=== PATIENT | male | born 1950 | race Caucasian/White ===

== ENCOUNTER 2017-08-09 07:30 | Inpatient (IN) | payer MEDICARE, OTHER ==
[2017-08-09] MEDS ORDERED: Thrombin (Bovine) 5,000 Unit Kit ONE (08:18)
[2017-08-09] MEDS ORDERED: Povidone-Iodine 10% Soln 118.25 ML Bottle ONE (08:18)
[2017-08-09] MEDS ORDERED: Lactated Ringers 1,000 ML IV SCH (09:00)
[2017-08-09] MEDS ORDERED: Gabapentin 300 MG Cap PO ONE (09:00)
[2017-08-09] MEDS ORDERED: Clindamycin Phosphate 900 MG in Sodium Chloride 0.9% 100 ML IV ONE (09:00)
[2017-08-09] MEDS ORDERED: Scopolamine 1.5 MG Transdermal Patch TOP SCH (09:00)
[2017-08-09] MEDS ORDERED: Ketamine 500 MG/5 ML MDV IV SCH (10:00)
[2017-08-09] MEDS ORDERED: Succinylcholine 200 MG/10 ML MDV ONE (10:14)
[2017-08-09] MEDS ORDERED: Ondansetron 4 MG/2 ML SDV ONE (10:14)
[2017-08-09] MEDS ORDERED: Rocuronium 50 MG/5 ML Vial ONE ×2 (10:14→11:51)
[2017-08-09] MEDS ORDERED: Neostigmine Methylsulfate 1 MG/ML 5 ML Syringe ONE (10:14)
[2017-08-09] MEDS ORDERED: Propofol 200 MG/20 ML SDV ONE (10:14)
[2017-08-09] MEDS ORDERED: Dexamethasone 4 MG/ML SDV ONE (10:14)
[2017-08-09] MEDS ORDERED: Glycopyrrolate 0.2 MG/ML 5 ML MDV ONE (10:14)
[2017-08-09] MEDS ORDERED: fentaNYL 250 MCG/5 ML SDV ONE ×2 (10:14→11:22)
[2017-08-09] MEDS: Tranexamic Acid 850 MG in Sodium Chloride 0.9% 50 ML IV SCH ×2 (11:32→13:35)
[2017-08-09] MEDS ORDERED: Naloxone 0.4 MG/ML SDV IVPUSH PRN (12:06)
[2017-08-09] MEDS ORDERED: HYDROmorphone/Normal Saline 15 MG/30 ML PCA IV PRN (12:06)
[2017-08-09] MEDS ORDERED: Lactated Ringers 1,000 ML ONE (12:35)
[2017-08-09] MEDS ORDERED: Linezolid 200 MG/100 ML Bag IRR ONE (13:00)
[2017-08-09] MEDS ORDERED: hydrOXYzine HCl 100 MG/2 ML SDV IM ONE (13:26)
--- NOTE | 2017-08-09 14:48 | OR ---
DATE OF PROCEDURE: 08/09/2017 PREOPERATIVE DIAGNOSIS: L5-S1 stenosis. POSTOPERATIVE DIAGNOSIS: L5-S1 stenosis. PROCEDURES PERFORMED: 1. Anterior lumbar interbody fusion, L5-S1. 2. Segmental instrumentation, L5-S1. 3. Interbody device placement, L5-S1. CO-SURGEON: Kain Rivera MD. WARM IN: DIANA Castro. Physician library technical assistant, DIANA Castro, played an essential role in assisting in this case, helping to position the patient, retract structures as needed, as well as suturing and cutting sutures as indicated. Her presence improved patient's safety and decreased operative time. ANESTHESIA: General endotracheal intubation. FLUID: Lactated Ringer solution. ESTIMATED BLOOD LOSS: 200 mL. COMPLICATIONS: None. SPECIMENS: None. DISCHARGE DISPOSITION: Stable to PACU. INDICATION: The patient was seen preoperatively in the clinic. He previously had an L4-5 laminectomy. Preoperative imaging confirmed a right extraforaminal disk herniation at L5- S1. Risks and benefits of the procedure were explained to the patient and informed consent was obtained. DETAILS OF PROCEDURE: The patient was seen preoperatively by myself and the Anesthesia staff in the preoperative holding area, where the operative site was marked. He was brought to the operative suite by the Anesthesia staff, where general anesthesia was administered. Sterile Deras catheter was placed. Neuromonitoring leads were placed and were normal throughout the procedure. The fluoroscopy unit was draped in a sterile manner. All extremities were found to be well padded. The patient was then prepped and draped in a sterile manner. Time-out was called identifying the correct patient, the correct procedure, the correct site, and that antibiotics had been begun within appropriate period of time. Please see Dr. Kain Rivera's note for exposure. After exposure had been accomplished, I used Bovie electrocautery to go through the anterior annulus and then used a knife to continue through the anulus, followed by a Clinton to separate the annulus from the endplates. I then used pituitaries to remove most of the disk en bloc. I then used straight and curved curettes as well as a Kerrison rongeur to remove the disk material as well as an anterior osteophyte on the inferior aspect of the L5 vertebral body, more on the right side. I then inserted sequential nandini from 9 to 15 mm. I then inserted a 13 and then a 15 mm implant. This was more on the right side, so I took more disk on the left. This showed that it was nicely in the midline. At this point, I then removed my trial and then removed any extra disk material. I then applied Signify allograft medial and laterally in the intervertebral space and then inserted my final implant, which was a Globus Magnify-S 25 x 31, 14, 17, 15- degree implant and then expanded this under direct visualization. I then placed my screws by doing an awl, then tap, and then screw placement. These were 30 mm x 5 mm screws. We then locked the locking mechanism for those screws. We then took final films, which showed the implant to be in good position. I did control little bit of bleeding with Floseal as well as placing some more Signify. Please see Dr. Kain Rivera's note for closure. Enrique Rivera DO /[id number]
[2017-08-09] MEDS ORDERED: Ondansetron 4 MG/2 ML SDV IV PRN (15:19)
[2017-08-09] MEDS ORDERED: hydrOXYzine HCl 100 MG/2 ML SDV IM PRN (15:20)
[2017-08-09] MEDS ORDERED: hydrOXYzine HCl 25 MG Tab PO PRN (15:20)
[2017-08-09] MEDS ORDERED: Cyclobenzaprine 10 MG Tab PO PRN (15:21)
[2017-08-09] MEDS ORDERED: Pantoprazole 40 MG Vial IV SCH (16:00)
[2017-08-09] MEDS: Nicotine 21 MG/24 Hr Patch TRDERM SCH (16:23)
[2017-08-09] MEDS: Dextrose 5%-Lactated Ringers 1,000 ML IV SCH ×2 (16:23→22:32)
[2017-08-09] MEDS: VERIFY SCOP PATCH TOP SCH ×2 (16:26→20:15)
[2017-08-09] MEDS: Clindamycin Phosphate 900 MG in Sodium Chloride 0.9% 100 ML IV SCH (17:42)
[2017-08-09] MEDS: Gabapentin 300 MG Cap PO SCH (20:17)
[2017-08-09] MEDS ORDERED: Tamsulosin 0.4 MG Cap.ER PO SCH (21:00)
[2017-08-10] MEDS: Clindamycin Phosphate 900 MG in Sodium Chloride 0.9% 100 ML IV SCH ×2 (01:57→10:52)
[2017-08-10] MEDS: Dextrose 5%-Lactated Ringers 1,000 ML IV SCH (05:02)
[2017-08-10] MEDS ORDERED: ALPRAZolam 0.5 MG Tab PO PRN (07:31)
--- NOTE | 2017-08-10 08:58 | PN ---
DATE OF SERVICE: 08/10/2017 SUBJECTIVE: Moose's vital signs have been stable. Temp max of 100. States his pain is controlled. He is using the JEWELRY SALES ASSOCIATE. Oral intake, ice chips. Deras catheter output was 1330. DANIKA drain put out 15 mL of a light pink serosanguineous drainage. REVIEW OF SYSTEMS: Remainder of review of systems negative for any pertinent positives and negatives. OBJECTIVE: GENERAL: Moose Padilla is a 66-year-old male. VITAL SIGNS: TPR is 100, 81, 16. Blood pressure is 124/70. HEENT: Negative. NECK: Supple. HEART: Regular rate and rhythm. LUNGS: Clear. ABDOMEN: Dressings dry and intact. Abdominal binder is on. EXTREMITIES: Without peripheral edema. ASSESSMENT: Anterior lumbar interbody fusion, segmental instrumentation, interbody device placement for L5-S1 stenosis. PLAN: 1. Saline lock IV when oral intake adequate. 2. Discontinue Deras catheter. 3. Regular diet. 4. Discontinue JEWELRY SALES ASSOCIATE and continuous pulse ox. 5. Percocet 5/325 mg 1 to 2 every 4 hours p.r.n. pain. 6. Colace 100 mg b.i.d. 7. Discontinue IV Protonix. 8. Xanax 0.5 mg q.i.d. p.r.n. 9. Lunesta 3 mg p.o. bedtime. 10.Omeprazole 40 mg p.o. daily. 11.Good pulmonary toilet. 12.We will evaluate p.r.n. or in a.m. Holly Falk PA-C /[id number]
[2017-08-10] MEDS: Gabapentin 300 MG Cap PO SCH ×2 (09:34→22:01)
[2017-08-10] MEDS: Pantoprazole 40 MG Tab.CR PO SCH (09:34)
[2017-08-10] MEDS: Docusate Sodium 100 MG Cap PO SCH ×2 (09:34→22:01)
[2017-08-10] MEDS: Acetaminophen/oxyCODONE 325-5 MG Tab PO PRN ×4 (09:35→22:43)
[2017-08-10] MEDS: Nicotine 21 MG/24 Hr Patch TRDERM SCH (09:36)
[2017-08-10] MEDS: VERIFY SCOP PATCH TOP SCH ×2 (09:36→22:02)
--- NOTE | 2017-08-10 17:34 | OR ---
DATE OF PROCEDURE: 08/09/2017 PREOPERATIVE DIAGNOSIS: Lumbar spinal stenosis, L5-S1. POSTOPERATIVE DIAGNOSES: 1. Lumbar spinal stenosis, L5-S1. 2. 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 PROCEDURES: 1. Anterior lumbar and spinal fusion, L5-S1 ([id number]). 2. Side repair of left common iliac vein ([id number]). INDICATION FOR PROCEDURE: The patient presents for anterior lumbar interspinal fusion of L5 and S1. General Surgery is involved in providing of the access for the orthopedic phase of the procedure. Potential risks of that phase including bleeding, infection, potentially life-threatening complications in terms of bleeding and or vascular occlusion, possibility of injury or other adjacent vessels were all reviewed, and the patient wishes to proceed. DETAILS OF PROCEDURE: The patient was taken to the operating room and placed in a supine position. After general endotracheal anesthesia was induced, a Deras catheter was inserted and it was placed underneath the left knee to offload pressure on the left psoas muscle. After the abdomen prepped and draped, a left lower paramedian incision was made and carried down through the skin and subcutaneous tissue and anterior rectus sheath. Rectus muscles were reflected medially and dissection continued from there down into the area of the psoas muscle retracting the peritoneum away from the left iliac vessels as well as distal aorta and vena cava. As we had retractors, it became evident that one of the branches of the left common iliac vein coming off laterally was densely adherent from the inflammatory standpoint, essentially almost fused to the vertebral body. At that point, this area needed to be divided and the side repair of the left common iliac vein accomplished with a surirl-gh-dilgy stitch of 5-0 [place]-Adi stitch. Following this, an adequate exposure was obtained. The middle cerebral vessels were divided with Harmonic scalpel. The neural plexus had been also retracted anteriorly. Following this, progression of exposure under separate dictation. Dr. Enrique Rivera performed the orthopedic phase of the procedure. Upon completion of that, the area was inspected. No further bleeding or other problems were noted. Some fibrin sealant was placed over the venous repair, both artery and vein appeared to be patent with good pulses in the distal arterial tree bilaterally. The area was irrigated with antibiotic-containing saline solution following removal of retractors and the anterior rectus sheath was reapproximated with #2 Vicryl stitch. A 10-S[place] round Tahir-Hernandez drain was placed through a stab wound superior to the main incision and the incision then closed with 2 layers of 3-0 and 4-0 Vicryl stitch deep and matthew for the skin. Dressing was applied. The patient was taken to the recovery room in satisfactory condition. There were no overt complications. Kain Rivera MD /[id number]
[2017-08-10] MEDS ORDERED: Tamsulosin 0.4 MG Cap.ER PO SCH ×2 (21:00)
[2017-08-10] MEDS ORDERED: Tamsulosin 0.4 MG Cap.ER PO ONE (21:15)
[2017-08-11] MEDS: Acetaminophen/oxyCODONE 325-5 MG Tab PO PRN ×2 (03:20→07:20)
[2017-08-11] MEDS: Pantoprazole 40 MG Tab.CR PO SCH (07:13)
[2017-08-11] MEDS: Docusate Sodium 100 MG Cap PO SCH (08:24)
[2017-08-11] MEDS: Gabapentin 300 MG Cap PO SCH (08:31)
[2017-08-11] MEDS: Nicotine 21 MG/24 Hr Patch TRDERM SCH (08:31)
--- NOTE | 2017-08-12 08:48 | DISCH ---
ADMISSION DIAGNOSES: Back pain, no other past medical history is listed, lumbar foraminal stenosis, discogenic low back pain, and spinal stenosis of lumbar spine without neurogenic claudication. DISCHARGE DIAGNOSIS: Anterior lumbar interbody fusion, segmental instrumentation, interbody device placement for L5 and S1. HISTORY: Moose Padilla is a 66-year-old male, who presents to the hospital with back pain. After preoperative evaluation and discussion of possible risks and possible complications, he wishes to proceed with surgical procedure. HOSPITAL COURSE: Moose had his surgery on 08/09/2017. He had no operative complications. On postop day #1, his Deras catheter was discontinued, PEER COUNSELOR discontinued. He was started on oral pain medication and regular diet. He had no complications. His activity was good. He was followed by Physical Therapy. He did have a temp max of 100.2, but after using his incentive spirometer, his temperature did come down right away. On postop day #2, he was able to be discharged to home without any complications. PHYSICAL EXAMINATION: GENERAL: Moose Padilla is a 66-year-old male. He is alert and orientated. VITAL SIGNS: Height 5 feet 9 inches, weight is 188 pounds. TPR 99.4, 87, 16. Blood pressure 126/68. HEENT: Negative. NECK: Supple. HEART: Regular rate and rhythm. LUNGS: Clear. ABDOMEN: Celi intact. DANIKA drain intact, draining a scant amount of pink serosanguineous drainage and normal tenderness. Abdominal binder has been on. EXTREMITIES: Without peripheral edema. DISPOSITION: Discharged to home. CONDITION: Stable and improving. FOLLOWUP: Followup appointment with Kain Rivera M.D., at [facility] on 08/17/2017 at 9:00 a.m. Followup appointment with Enrique Rivera D.O., on 09/12/2017 at 10:30 a.m. HOME PRESCRIPTIONS: Percocet 5/325 mg 1 to 2 every 4 hours p.r.n. pain, #50; Colace 100 mg oral b.i.d., #100; and Flomax, use as directed per primary care provider. He is to resume Lunesta 3 mg oral at bedtime, Neurontin 600 mg oral b.i.d., naproxen p.r.n., Prilosec 40 mg oral daily, and Viagra 100 mg oral at bedtime. DISCHARGE INSTRUCTIONS: 1. Diet after discharge: Usual diet as tolerated. Drink 8 to 10 glasses of water a day. 2. No lifting greater than 10 pounds for 6 weeks. Other activity per Physical Therapy. 3. Driving: Do not drive while on pain medication. 4. May shower. 5. Notify provider if any fever, increased pain, nausea or vomiting. 6. Keep site clean and dry. 7. Wound care: After discharge, strip, empty, measure, and record DANIKA drain 4 times a day and bring record of drainage to clinic appointment. Wear abdominal binder for 6 weeks. SPECIAL INSTRUCTIONS: Use incentive spirometer 10 times every hour while awake for 1 week. Follow postoperative instructions per Enrique Rivera DO, in regard to that.
== END 2017-08-11 09:20 | disposition home or self-care (01) | DRG 460 ==
LOC: EDSTATUS 07:30 → JP.SDS 08:20 → JP.SDSSCHI 08:20 → JP.MS 13:45
PROVIDERS: ADMIT Orthopaedic Surgery; ATTEND Orthopaedic Surgery
PROC: 0SG03A0 Fusion of Lumbar Vertebral Joint with Interbody Fusion Device, Anterior Approach, Anterior Column, Percutaneous Approach (ICD-10-PCS; principal; 2017-08-09)
PROC: 0ST20ZZ Resection of Lumbar Vertebral Disc, Open Approach (ICD-10-PCS; 2017-08-09)
PROC: 06L Lower Veins, Occlusion (ICD-10-PCS; 2017-08-09)
DX: M48.061 Spinal stenosis, lumbar region without neurogenic claudication (principal); M51.36 Other intervertebral disc degeneration, lumbar region; F17.210 Nicotine dependence, cigarettes, uncomplicated; Z88.0 Allergy status to penicillin; I87.8 Other specified disorders of veins
CPT/HCPCS: 36415; 76001; 80048; 83735; 84100; 85027; 86850; 86900; 86901; 86920; 86922; 94762; 97161-GP; 97165-GO; 97530-GP; 97535-GO; 97535-GP; A9270-GY; C9113; J0330; J1100; J1170; J2020; J2405; J2704; J2710; J3010; J3410; J7030; J7042; J7050; J7120; S0077

== ENCOUNTER 2020-01-16 19:27 | Emergency (ER) | payer MEDICARE, OTHER ==
[2020-01-16] MEDS ORDERED: HYDROmorphone 1 MG/ML Syringe IVPUSH ONE (19:31)
--- NOTE | 2020-01-16 19:38 | EDM.PDOC ---
ED HPI GENERAL MEDICAL PROBLEM - General Chief Complaint: Lower Extremity Injury/Pain Stated Complaint: POSSIBLE BROKEN RT LEG Time Seen by Provider: 01/16/20 19:30 Source of Information: Reports: Patient, Old Records History Limitations: Reports: No Limitations - History of Present Illness INITIAL COMMENTS - FREE TEXT/NARRATIVE: 69 yo male fell down some stairs at home before coming in today. He injured his R distal leg only in the fall. Here for eval. Onset: Today, Sudden Onset Date: 01/16/20 Onset Time: 18:40 Duration: Minutes:, Constant Location: Reports: Lower Extremity, Right Quality: Reports: Ache Severity: Severe Improves with: Reports: Rest Worsens with: Reports: Movement Context: Reports: Trauma Associated Symptoms: Reports: No Other Symptoms Treatments CABLE INSTALLER: Reports: NSAIDS (ibuprofen ? 1 tab) right lower leg Pain Score (Numeric/FACES): 8 - Related Data Allergies Allergy/AdvReac Type Severity Reaction Status Date / Time Penicillins Allergy Swelling Verified 01/16/20 19:37 Home Meds: Home Meds ALPRAZolam [Xanax] 0.5 mg PO QID PRN 06/15/17 [History] Eszopiclone [Lunesta] 3 mg PO BEDTIME 06/15/17 [History] Naproxen Sodium 220 mg PO DAILY PRN 06/15/17 [History] Omeprazole [priLOSEC OTC] 40 mg PO DAILY 06/15/17 [History] Tamsulosin [Flomax] 0.8 mg PO DAILY 06/15/17 [History] Past Medical History Gastrointestinal History: Reports: Colon Polyp, GERD Genitourinary History: Reports: Other (See Below) Other Genitourinary History: urinary retension Musculoskeletal History: Reports: Arthritis Neurological History: Reports: Neuropathy, Peripheral Other Neuro History: furuncle of neck, spinal stenosis Psychiatric History: Reports: Anxiety - Past Surgical History GI Surgical History: Reports: Colonoscopy, EGD Male Surgical History: Reports: None Neurological Surgical History: Reports: Laminectomy Musculoskeletal Surgical History: Reports: None Other Musculoskeletal Surgeries/Procedures:: ALIF L5-S1 08-09-17 Social & Family History - Family History Family Medical History: Noncontributory - Caffeine Use Caffeine Use: Reports: Coffee Review of Systems - Review of Systems Review Of Systems: See Below Constitutional: Reports: No Symptoms Musculoskeletal: Reports: Leg Pain (distal R leg) Skin: Reports: Bruising, Wound (small break in the skin over area of injury. ) Neurological: Reports: Numbness (both feet(hx of neuropathy)) ED EXAM, GENERAL - Physical Exam Exam: See Below Exam Limited By: No Limitations General Appearance: Alert, WD/WN, No Apparent Distress Eye Exam: Bilateral Eye: Normal Inspection Ears: Normal External Exam, Normal Canal, Hearing Grossly Normal Ear Exam: Bilateral Ear: Auricle Normal, Canal Normal Nose: Normal Inspection, No Blood Throat/Mouth: Normal Inspection, Normal Lips, Normal Voice, No Airway Compromise Head: Atraumatic, Normocephalic Neck: Normal Inspection, Non-Tender Respiratory/Chest: No Respiratory Distress, Lungs Clear, No Accessory Muscle Use, Chest Non-Tender Cardiovascular: Regular Rate, Rhythm, No Edema Extremities: Limited Range of Motion (of R ankle due to pain), Other (has swelling of the distal tibia area with tenderness. ). No: Normal Range of Motion, Non-Tender Neurological: Alert, Oriented, CN II-XII Intact, Normal Cognition, Other (mild numbness of both feet from his chronic neuropathy. ) Psychiatric: Normal Affect, Normal Mood Skin Exam: Warm, Dry, Normal Color, No Rash, Wound/Incision (small break in skin to distal tib/fib area anteriorly. ). No: Intact ED TRAUMA EXTREMITY PROCEDURES - Splinting Right Lower Extremity Splint Site: R short leg posterior splint Pre-Procedure NV Status: Normal Post-Procedure NV Status: Normal Splint Material: Fiberglass (Ortho Glass) Splint Design: Posterior Applied & Form Fitted By: Provider Provider Post-Splint Application NV Check: NV Status Normal, Good Position Complications: No Course - Vital Signs Last Recorded V/S: Last Vital Signs Temp 36.6 C 01/16/20 19:33 Pulse 75 01/16/20 20:45 Resp 16 01/16/20 19:33 BP 146/85 H 01/16/20 20:45 Pulse Ox 98 01/16/20 20:45 - Orders/Labs/Meds Orders: Active Orders 24 hr Category Date Time Status Tibia Fibula Rt [CR] Stat Exams 01/16/20 19:32 Taken Sodium Chloride 0.9% [Normal Saline] 1,000 ml Med 01/16/20 19:45 Active IV ASDIRECTED Medication Orders Sodium Chloride (Normal Saline) 1,000 mls @ 150 mls/hr IV ASDIRECTED MARYLOU Last Admin: 01/16/20 19:40 Dose: 150 mls/hr Documented by: KANIKA Stevenss: Medications Generic Name Dose Route Start Last Admin Trade Name Gabriella PRN Reason Stop Dose Admin Sodium Chloride 1,000 mls @ 150 mls/hr 01/16/20 19:45 01/16/20 19:40 Normal Saline IV 150 mls/hr ASDIRECTED MARYLOU Administration Discontinued Medications Generic Name Dose Route Start Last Admin Trade Name Gabriella PRN Reason Stop Dose Admin Bacitracin 1 dose 01/16/20 20:10 01/16/20 20:46 Bacitracin Oint 1 Gm TOP 01/16/20 20:11 1 dose ONETIME ONE Administration Hydrogen Peroxide 30 ml 01/16/20 20:23 01/16/20 20:46 Proxacol 3% TOP 01/16/20 20:24 30 ml ONETIME STA Administration Hydromorphone HCl 1 mg 01/16/20 19:31 01/16/20 20:25 Dilaudid IVPUSH 01/16/20 19:32 1 mg ONETIME ONE Administration Ketorolac Tromethamine 30 mg 01/16/20 20:09 01/16/20 20:14 Toradol IVPUSH 01/16/20 20:10 30 mg ONETIME ONE Administration - Radiology Interpretation Free Text/Narrative:: R tib/fib [id number]-displaced distal fibula fx Departure - Departure Time of Disposition: 21:40 Disposition: Home, Self-Care 01 Condition: Fair Clinical Impression: Bruising Fracture of distal fibula Qualifiers: Encounter type: initial encounter Fracture type: closed Fracture morphology: other fracture Laterality: right Qualified Code(s): S82.831A - Other fracture of upper and lower end of right fibula, initial encounter for closed fracture - Discharge Information *PRESCRIPTION DRUG MONITORING PROGRAM REVIEWED*: No *COPY OF PRESCRIPTION DRUG MONITORING REPORT IN PATIENT BREANA: No Instructions: Nondisplaced Fibular Ankle Fracture Treated With Immobilization, Adult Referrals: Antonio Hall MD [Primary Care Provider] - Forms: ED Department Discharge Additional Instructions: Keep ankle elevated above your heart to reduce swelling. Crutch walking and no weight bearing. Take ibuprofen 400 mg every 6 hrs with food for pain relief. Add either acetaminophen OR [place] for added relief. F/U with Dr. Vaca within the week for further evaluation(orthopedics). Wear splint at all times. Sepsis Event Note (ED) - Focused Exam Vital Signs: Vital Signs Temp Pulse Resp BP Pulse Ox 01/16/20 20:45 75 146/85 H 98 01/16/20 19:33 36.6 C 91 16 147/68 H 97 01/16/20 19:30 36.6 C 91 16 147/68 H 97 - My Orders Last 24 Hours: My Active Orders 01/16/20 19:32 Tibia Fibula Rt [CR] Stat 01/16/20 19:45 Sodium Chloride 0.9% [Normal Saline] 1,000 ml IV ASDIRECTED - Assessment/Plan Last 24 Hours: My Active Orders 01/16/20 19:32 Tibia Fibula Rt [CR] Stat 01/16/20 19:45 Sodium Chloride 0.9% [Normal Saline] 1,000 ml IV ASDIRECTED
[2020-01-16] MEDS ORDERED: Sodium Chloride 0.9% 1,000 ML IV SCH (19:45)
[2020-01-16] MEDS ORDERED: Ketorolac 30 MG/ML SDV IVPUSH ONE (20:09)
[2020-01-16] MEDS ORDERED: Bacitracin Oint 1 GM U/D Packet TOP ONE (20:10)
[2020-01-16] MEDS ORDERED: Hydrogen Peroxide 3% Top Soln 240 ML Bottle TOP STA (20:23)
--- NOTE | 2020-01-17 08:51 | CR ---
Tibia Fibula Rt CLINICAL HISTORY: Fall, pain FINDINGS: There is some soft tissue swelling over the medial malleolus. There is a tiny ossific density off the tip of the malleolus. This may be secondary ossification center. Small lesions is not excluded. There is some minimal bony irregularity at the distal fibula with the small vague linear lucency. Nondisplaced fracture not excluded Impression: Possible nondisplaced fracture distal fibula Small ossification of the medial malleolus near soft tissue swelling may represent secondary ossification center or small avulsion. Dedicated ankle study is recommended
== END 2020-01-16 21:58 | disposition home or self-care (01) ==
LOC: JP.ED 19:27
DX: S82.831A Other fracture of upper and lower end of right fibula, initial encounter for closed fracture (principal); K21.9 Gastro-esophageal reflux disease without esophagitis; Z88.0 Allergy status to penicillin; W10.9XXA Fall (on) (from) unspecified stairs and steps, initial encounter
CPT/HCPCS: 29515; 73590; 96361; 96374; 96375; 99283; A9270; J1170; J1885; J7030

== ENCOUNTER 2020-09-22 07:04 | Day surgery (SDC) | payer MEDICARE, OTHER ==
[~2020-09-22 07:04] MED LIST: Midazolam 1 MG/ML 2 ML SDV ONE; Propofol 200 MG/20 ML SDV ONE; fentaNYL 100 MCG/2 ML SDV ONE
[2020-09-22] MEDS ORDERED: Dextrose 5%-Lactated Ringers 1,000 ML IV SCH (08:00)
--- NOTE | 2020-09-30 16:38 | OR ---
DATE OF PROCEDURE: SURGEON: Kain Rivera MD PREOPERATIVE DIAGNOSIS: History of anemia. POSTOPERATIVE DIAGNOSIS: History of anemia associated with: 1. Mild antral gastritis, and proximal duodenitis. 2. Small colon polyps x3. OPERATIVE PROCEDURES: 1. Esophagogastroduodenoscopy with antral biopsies for CLOtest. 2. Flexible colonoscopy with polypectomy by snare technique x3. ANESTHESIA: IV sedation. INDICATION FOR PROCEDURE: A 69-year-old male, recently presenting with some anemia. He has recently been started on omeprazole 40 mg a day. The plan is to proceed with upper and lower endoscopy for diagnostic purposes. Potential risks including bleeding and perforation were discussed, and the patient wishes to proceed. DETAILS OF PROCEDURE: The patient was taken to the operating room, placed in the left lateral decubitus position. IV sedation was administered. The upper GI endoscope was passed orally through the length of the esophagus into the stomach with retroflexion view of the fundus, thereafter through the pyloric channel and into the proximal duodenum. Findings included normal hypopharynx, larynx, upper esophageal sphincter, and esophageal body. At the EG junction, the patient was noted to have no significant hiatal hernia or inflammation in that area. Within the stomach, there were some patchy reddened areas in the antrum, and proximal duodenum, otherwise the mucosal pattern normalized beyond the duodenal bulbs. At this point, biopsies were obtained from the antrum and sent for CLOtest for H pylori. No bleeding from the biopsy sites was seen and the procedure was then concluded. Attention was then taken to the colonoscopy. The initial digital rectal exam was performed, was unremarkable. Colonoscope was then passed into the rectum with retroflexion revealing uncomplicated hemorrhoidal columns. Scope was eventually passed to the level of the cecum. The prep was quite good, only a small amount of liquid stool was present. Three small polyps were seen. These were all around 3 mm in size. One was located on the colonic edge of the ileocecal valve and two were in the mid sigmoid colon. Each of these were excised by means of cautery snare technique. Good hemostasis was noted of the polypectomy sites and the procedure was then concluded. Overall, there was no obvious site of GI bleeding noted on today's exam. It is possible there was some erosive gastritis or duodenitis earlier that is now omeprazole that has resulted in some bleeding. The patient will reach out for followup appointment with Dr. Hall in 1 month with a CBC to be obtained at that time. He will otherwise continue his current medications including the omeprazole 40 mg a day. Kain Rivera MD /[id number]
== END 2020-09-22 09:40 | disposition home or self-care (01) ==
LOC: JP.SDS 07:04
PROVIDERS: ATTEND Surgery
DX: K63.5 Polyp of colon (principal); D64.9 Anemia, unspecified; K29.90 Gastroduodenitis, unspecified, without bleeding; K64.9 Unspecified hemorrhoids; J44.9 Chronic obstructive pulmonary disease, unspecified; K21.9 Gastro-esophageal reflux disease without esophagitis; Z88.0 Allergy status to penicillin
CPT/HCPCS: 43239; 45385; 87081; 88305; J2250; J2704; J3010; J7121

== ENCOUNTER 2021-03-18 11:57 | Emergency (ER) | payer MEDICARE, OTHER ==
--- NOTE | 2021-03-18 13:12 | EDM.PDOC ---
ED HPI GENERAL MEDICAL PROBLEM - General Chief Complaint: Respiratory Problem Stated Complaint: COVID POSITIVE Time Seen by Provider: 03/18/21 12:55 Source of Information: Reports: Patient, RN Notes Reviewed History Limitations: Reports: No Limitations - History of Present Illness INITIAL COMMENTS - FREE TEXT/NARRATIVE: 7-year-old gentleman presents emergency department today complaint of shortness of breath, he has known history of Covid he was for symptomatic but 8 days ago 2 days ago tested positive on home test. He has a O2 saturation monitor at home he stays around 90% has body aches fevers weakness and some diarrhea Headache Pain Score (Numeric/FACES): 3 - Related Data Allergies Allergy/AdvReac Type Severity Reaction Status Date / Time Penicillins Allergy Swelling Verified 09/22/20 07:16 Home Meds: Home Meds ALPRAZolam [Xanax] 0.5 mg PO QID PRN 06/15/17 [History] Eszopiclone [Lunesta] 3 mg PO BEDTIME 06/15/17 [History] Naproxen Sodium 220 mg PO DAILY PRN 06/15/17 [History] Omeprazole [priLOSEC OTC] 40 mg PO DAILY 06/15/17 [History] Tamsulosin [Flomax] 0.8 mg PO DAILY 06/15/17 [History] Acetaminophen/Caffeine [Excedrin Tension Headache Cplt] 1 - 2 tab PO QID 09/18/20 [History] Sildenafil Citrate [Viagra] 100 mg PO ASDIRECTED PRN 09/18/20 [History] Multivit-Mins/Iron/Folic/Lycop [Centrum Men's Tablet] 1 tab PO DAILY 09/22/20 [History] Past Medical History HEENT History: Reports: Impaired Vision, Other (See Below) Other HEENT History: reading glasses Respiratory History: Reports: COPD Gastrointestinal History: Reports: Colon Polyp, GERD Genitourinary History: Reports: Other (See Below) Other Genitourinary History: urinary retention Musculoskeletal History: Reports: Arthritis, Fracture Other Musculoskeletal History: R distal fib Fx ED 01/16/20 Neurological History: Reports: Neuropathy, Peripheral Other Neuro History: furuncle of neck, spinal stenosis Psychiatric History: Reports: Anxiety - Infectious Disease History Infectious Disease History: Reports: Chicken Pox, Measles, Mumps - Past Surgical History GI Surgical History: Reports: Colonoscopy, EGD Male Surgical History: Reports: None Neurological Surgical History: Reports: Laminectomy Musculoskeletal Surgical History: Reports: None Other Musculoskeletal Surgeries/Procedures:: ALIF L5-S1 4-18 Social & Family History - Family History Family Medical History: No Pertinent Family History - Tobacco Use Tobacco Use Status *Q: Current Every Day Tobacco User Years of Tobacco use: 50 Packs/Tins Daily: 1 - Caffeine Use Caffeine Use: Reports: Coffee - Alcohol Use Days Per Week of Alcohol Use: 1 Number of Drinks Per Day: 3 Total Drinks Per Week: 3 - Recreational Drug Use Recreational Drug Use: Yes Drug Use in Last 12 Months: Yes Recreational Drug Type: Reports: Marijuana/Hashish ED ROS GENERAL - Review of Systems Review Of Systems: See Below Constitutional: Reports: Fever, Weakness, Fatigue HEENT: Reports: No Symptoms Respiratory: Reports: Shortness of Breath Cardiovascular: Reports: Dyspnea on Exertion GI/Abdominal: Reports: Diarrhea ED EXAM, GENERAL - Physical Exam Exam: See Below Exam Limited By: No Limitations General Appearance: Alert, WD/WN, No Apparent Distress Respiratory/Chest: No Respiratory Distress, No Accessory Muscle Use, Chest Non- Tender, Decreased Breath Sounds, Wheezing (Faint expiratory wheeze) Cardiovascular: Regular Rate, Rhythm, No Murmur Course - Vital Signs Last Recorded V/S: Last Vital Signs Temp 97.6 F 03/18/21 12:38 Pulse 81 03/18/21 15:10 Resp 18 03/18/21 14:45 BP 138/80 03/18/21 15:10 Pulse Ox 90 L 03/18/21 15:10 - Orders/Labs/Meds Orders: Active Orders 24 hr Category Date Time Status RT Aerosol Therapy [RC] ASDIRECTED Care 03/18/21 13:11 Active RT Post Treatment Assessment [RC] Click to Edit Care 03/18/21 13:11 Active Acetaminophen [TylenoL] Med 03/18/21 14:00 Active 650 mg PO ONETIME PRN EPINEPHrine [Adrenalin] Med 03/18/21 14:00 Active 0.3 mg IM ONETIME PRN Famotidine [Pepcid] Med 03/18/21 14:00 Active 20 mg IV ONETIME PRN diphenhydrAMINE [Benadryl] Med 03/18/21 14:00 Active 50 mg IVPUSH ONETIME PRN methylPREDNISolone Sod Succ [Solu-MEDROL] Med 03/18/21 14:00 Active 125 mg IVPUSH ONETIME PRN Medication Orders Acetaminophen (Acetaminophen 325 Mg Tab) 650 mg PO ONETIME PRN PRN Reason: HEADACHE,[place] Diphenhydramine HCl (Diphenhydramine 50 Mg/Ml Sdv) 50 mg IVPUSH ONETIME PRN PRN Reason: ALLERGIC RXN Epinephrine HCl (Epinephrine 1 Mg/Ml Sdv) 0.3 mg IM ONETIME PRN PRN Reason: ALLERGIC RXN Famotidine (Famotidine 20 Mg/2 Ml Sdv) 20 mg IV ONETIME PRN PRN Reason: ALLERGIC RXN Methylprednisolone Sodium Succinate (Methylprednisolone Sodium Succinate 125 Mg/2 Ml Sdv) 125 mg IVPUSH ONETIME PRN PRN Reason: ALLERGIC RXN Meds: Medications Generic Name Dose Route Start Last Admin Trade Name Freq PRN Reason Stop Dose Admin Acetaminophen 650 mg 03/18/21 14:00 Acetaminophen 325 Mg Tab PO ONETIME PRN HEADACHE,CHILLS Diphenhydramine HCl 50 mg 03/18/21 14:00 Diphenhydramine 50 Mg/Ml Sdv IVPUSH ONETIME PRN ALLERGIC RXN Epinephrine HCl 0.3 mg 03/18/21 14:00 Epinephrine 1 Mg/Ml Sdv IM ONETIME PRN ALLERGIC RXN Famotidine 20 mg 03/18/21 14:00 Famotidine 20 Mg/2 Ml Sdv IV ONETIME PRN ALLERGIC RXN Methylprednisolone Sodium Succinate 125 mg 03/18/21 14:00 Methylprednisolone Sodium Succinate 125 Mg/2 Ml Sdv IVPUSH ONETIME PRN ALLERGIC RXN Discontinued Medications Generic Name Dose Route Start Last Admin Trade Name Freq PRN Reason Stop Dose Admin Albuterol/Ipratropium 2 gm 03/18/21 14:30 Albuterol/Ipratropium 4 Gm Inhalation [place] [facility] 03/18/21 14:31 ONETIME ONE Bamlanivimab 700 mg/ 160 mls @ 310 mls/hr 03/18/21 14:00 03/18/21 14:15 Etesevimab 1,400 mg/ Sodium IV 03/18/21 14:30 310 mls/hr Chloride ONETIME ONE Administration Departure - Departure Time of Disposition: 15:46 Disposition: Home, Self-Care 01 Condition: Fair Clinical Impression: COVID-19 - Discharge Information Instructions: 10 Things You Can Do to Manage Your COVID-19 Symptoms at Home - [facility] (11/21/2020) Referrals: Antonio Hall MD [Primary Care Provider] - Forms: ED Department Discharge Additional Instructions: Please followup with your primary care provider in 7-10 days if not better, please call return to the emergency department with worsening of symptoms. Sepsis Event Note (ED) - Evaluation Sepsis Screening Result: No Definite Risk - Focused Exam Vital Signs: Vital Signs Temp Pulse Resp BP Pulse Ox 03/18/21 15:10 81 138/80 90 L 03/18/21 14:45 81 18 140/80 91 L 03/18/21 14:15 84 18 118/69 90 L 03/18/21 12:38 97.6 F 89 20 142/77 H 92 L - My Orders Last 24 Hours: My Active Orders 03/18/21 13:11 RT Aerosol Therapy [RC] ASDIRECTED RT Post Treatment Assessment [RC] Click to Edit 03/18/21 14:00 Acetaminophen [TylenoL] 650 mg PO ONETIME PRN EPINEPHrine [Adrenalin] 0.3 mg IM ONETIME PRN Famotidine [Pepcid] 20 mg IV ONETIME PRN diphenhydrAMINE [Benadryl] 50 mg IVPUSH ONETIME PRN methylPREDNISolone Sod Succ [Solu-MEDROL] 125 mg IVPUSH ONETIME PRN - Assessment/Plan Last 24 Hours: My Active Orders 03/18/21 13:11 RT Aerosol Therapy [RC] ASDIRECTED RT Post Treatment Assessment [RC] Click to Edit 03/18/21 14:00 Acetaminophen [TylenoL] 650 mg PO ONETIME PRN EPINEPHrine [Adrenalin] 0.3 mg IM ONETIME PRN Famotidine [Pepcid] 20 mg IV ONETIME PRN diphenhydrAMINE [Benadryl] 50 mg IVPUSH ONETIME PRN methylPREDNISolone Sod Succ [Solu-MEDROL] 125 mg IVPUSH ONETIME PRN
[2021-03-18] MEDS ORDERED: Famotidine 20 MG/2 ML SDV IV PRN (14:00)
[2021-03-18] MEDS ORDERED: diphenhydrAMINE 50 MG/ML SDV IVPUSH PRN (14:00)
[2021-03-18] MEDS ORDERED: EPINEPHrine 1 MG/ML SDV IM PRN (14:00)
[2021-03-18] MEDS ORDERED: Acetaminophen 325 MG Tab PO PRN (14:00)
[2021-03-18] MEDS ORDERED: Bamlanivimab 700 MG, ETESEVIMAB 1,400 MG in Sodium Chloride 0.9% 100 ML IV ONE (14:00)
[2021-03-18] MEDS ORDERED: methylPREDNISolone Sodium Succinate 125 MG/2 ML SDV IVPUSH PRN (14:00)
[2021-03-18] MEDS ORDERED: Albuterol/Ipratropium 4 GM Inhalation Spray INH ONE (14:30)
[2021-03-18] MEDS ORDERED: Albuterol/Ipratropium 4 GM Inhalation Spray INH SCH (16:00)
== END 2021-03-18 16:13 | disposition home or self-care (01) ==
LOC: JP.ED 11:57
DX: U07.1 COVID-19 (principal); J44.9 Chronic obstructive pulmonary disease, unspecified; K21.9 Gastro-esophageal reflux disease without esophagitis; G62.9 Polyneuropathy, unspecified; Z72.0 Tobacco use; Z79.899 Other long term (current) drug therapy
CPT/HCPCS: 94640; 99284; A9270; M0245; Q0245